=== PATIENT | male | born 2000 | race African-American/Black ===

== ENCOUNTER 2019-08-13 12:35 | Emergency (ER) | payer OTHER ==
[~2019-08-13] VITALS: Ht 177.8 cm; Wt 73.0 kg
[~2019-08-13 12:35] MED LIST: IBUP200C14
[2019-08-13] MEDS ORDERED: methylPREDNISolone SOD SUCC 125 MG/2 ML VL IM ONE (16:30)
[2019-08-13 16:38] VITALS: BP 137/86
[2019-08-13] MEDS ORDERED: IOHEXOL 300 MG/ML 100ML BOTTLE IJ ONE (16:49)
[2019-08-13] MEDS ORDERED: cefTRIAXone 1GM/50ML D5W 50 ML IV ONE (17:45)
== END 2019-08-13 18:03 | disposition left against medical advice (07) ==
LOC: ER 12:35
DX: J36 Peritonsillar abscess (principal)
CPT/HCPCS: 70491; 96365; 96372; 99284; J0696; J2930; Q9967

== ENCOUNTER 2020-04-08 09:14 | Emergency (ER) | payer OTHER ==
[~2020-04-08] VITALS: Ht 177.8 cm; Wt 86.2 kg
[2020-04-08 09:22] VITALS: BP 133/98
[2020-04-08] MEDS ORDERED: KETOROLAC TROMETH 60MG/2ML VIAL IM ONE (09:45)
== END 2020-04-08 11:09 | disposition home or self-care (01) ==
LOC: ER 09:14
DX: S30.0XXA Contusion of lower back and pelvis, initial encounter (principal); L05.91 Pilonidal cyst without abscess; V29.9XXA Motorcycle rider (driver) (passenger) injured in unspecified traffic accident, initial encounter; Y93.89 Activity, other specified; Y92.89 Other specified places as the place of occurrence of the external cause; Y99.8 Other external cause status
CPT/HCPCS: 72220; 96372; 99283; J1885

== ENCOUNTER 2020-04-10 06:08 | Emergency (ER) | payer OTHER ==
[~2020-04-10] VITALS: Ht 177.8 cm; Wt 85.7 kg
[2020-04-10 07:21] VITALS: BP 149/89
[2020-04-10] MEDS ORDERED: KETOROLAC TROMETH 60MG/2ML VIAL IM ONE (07:45)
== END 2020-04-10 07:53 | disposition home or self-care (01) ==
LOC: ER 06:08
DX: M85.68 Other cyst of bone, other site (principal)
CPT/HCPCS: 96372; 99283; J1885

== ENCOUNTER 2023-07-01 09:27 | Emergency (ER) | payer OTHER, MEDICAID ==
[~2023-07-01] VITALS: Ht 180.3 cm; Wt 90.2 kg
[2023-07-01 12:00] VITALS: BP 141/95; PULSE 101; RESP 16; TEMP 99; O2SAT 96
[2023-07-01] MEDS ORDERED: KETOROLAC TROMETH 60MG/2ML VIAL IM ONE (12:30)
[2023-07-01] MEDS ORDERED: DexAMETHasone SOD PHOS 10MG/1ML VIAL INJ PO ONE (12:30)
[2023-07-01] MEDS ORDERED: cefTRIAXone SOD 1,000 MG VL IM ONE (12:30)
[2023-07-01 14:20] LABS: Rapid Strep A Screen-Throat Positive
[2023-07-01] MEDS ORDERED: LIDO2SOL26 MT ×3 (14:42→16:00)
[2023-07-01] MEDS ORDERED: PENI500T2 PO ×3 (14:42→16:00)
== END 2023-07-01 14:59 | disposition home or self-care (01) ==
LOC: ER 09:27
DX: J02.0 Streptococcal pharyngitis (principal); Z79.899 Other long term (current) drug therapy
CPT/HCPCS: 71046; 87880; 96372; 99284; J0696; J1100; J1885